=== PATIENT | male | born 1970 ===

== ENCOUNTER 2019-10-14 12:32 | Emergency (ER) | payer SELFPAY ==
[~2019-10-14] VITALS: Ht 175.3 cm; Wt 109.1 kg
[2019-10-14 12:52] VITALS: Ht 175.3 cm; Wt 109.1 kg
[2019-10-14] MEDS ORDERED: ZPAK PO (12:55)
[2019-10-14] MEDS ORDERED: SYMBICORT 16010.2 GM INH (12:56)
[2019-10-14] MEDS ORDERED: SINGULAIR10 MG PO (12:56)
[2019-10-14] MEDS ORDERED: ZOLOFT50 MG PO (12:57)
[2019-10-14] MEDS ORDERED: CYCLOBENZAPRINE10 MG PO (14:38)
[2019-10-14 14:54] VITALS: BP 129/68
== END 2019-10-14 14:55 | disposition home or self-care (01) ==
LOC: D.ER 12:32
DX: S39.012A Strain of muscle, fascia and tendon of lower back, initial encounter (principal); W19.XXXA Unspecified fall, initial encounter; Y93.9 Activity, unspecified; Y92.9 Unspecified place or not applicable; M62.838 Other muscle spasm; J45.909 Unspecified asthma, uncomplicated